=== PATIENT | female | born 1960 | race Caucasian/White ===

== ENCOUNTER 2021-11-16 14:49 | Outpatient (RCR) | payer BC ==
[2021-11-16 16:24] LABS: ABSOLUTE RETIC # 56 10e9/uL (24-90); BASOPHILS % (AUTO) 1 % (0-10); EOSINOPHILS # (AUTO) 0.1 10^3/uL (0.0-0.3); EOSINOPHILS % (AUTO) 1 % (0-10); HEMATOCRIT 45 % (35-52); HEMOGLOBIN 14.5 g/dL (11.5-16.0); LYMPHOCYTES # (AUTO) 1.5 10^3/uL (1.0-4.0); LYMPHOCYTES % (AUTO) 28 % (12-44); MEAN CORPUSCULAR HEMOGLOBIN 29 pg (25-34); MEAN CORPUSCULAR HGB CONC 32 g/dL (32-36); MEAN CORPUSCULAR VOLUME 89 fL (80-99); MEAN PLATELET VOLUME 10.3 fL (9.0-12.2); MONOCYTES # (AUTO) 0.4 10^3/uL (0.0-1.0); MONOCYTES % (AUTO) 7 % (0-12); NEUTROPHILS # (AUTO) 3.4 10^3/uL (1.8-7.8); NEUTROPHILS % (AUTO) 63 % (42-75); PLATELET COUNT 318 10^3/uL (130-400); RETICULOCYTE % 1.12 % (0.50-2.40); WHITE BLOOD COUNT 5.4 10^3/uL (4.3-11.0)
[2021-11-16 16:26] LABS: ALBUMIN 4.4 GM/DL (3.2-4.5); BILIRUBIN,TOTAL 0.4 MG/DL (0.1-1.0); CALCIUM 9.5 MG/DL (8.5-10.1); CREATININE SERUM 0.77 MG/DL (0.60-1.30); POTASSIUM 3.3 MMOL/L (3.6-5.0); TOTAL PROTEIN 7.3 GM/DL (6.4-8.2)
== END 2021-12-13 | disposition home or self-care (01) ==
LOC: ONC 14:49
PROVIDERS: ATTEND Internal Medicine Hematology & Oncology
DX: R10.9 Unspecified abdominal pain (principal); G89.29 Other chronic pain
CPT/HCPCS: 80053; 82728; 83540; 83550; 83615; 85025; 85045; G0463; 36415; 99215

== ENCOUNTER 2023-01-06 23:05 | Emergency (ER) | payer BC ==
[~2023-01-06] VITALS: Ht 162.6 cm; Wt 43.5 kg
[2023-01-06 23:15] VITALS: BP 155/118
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
[2023-01-07] MEDS ORDERED: ACETAMINOPHEN 500 MG TAB (TYLENOL) PO ONE
== END 2023-01-07 00:15 | disposition home or self-care (01) ==
LOC: EDUNIT# 23:05 → ER 23:08
DX: R51.9 Headache, unspecified (principal); Y04.8XXA Assault by other bodily force, initial encounter; Y92.838 Other recreation area as the place of occurrence of the external cause
CPT/HCPCS: 99283